=== PATIENT | male | born 1970 | race Two or more races ===

== ENCOUNTER 2024-08-28 16:32 | Emergency (ER) | payer MEDICAID, OTHER ==
[~2024-08-28] VITALS: Ht 167.6 cm; Wt 83.4 kg
[2024-08-28 17:45] LABS: Basophils # (auto) 0.1 10 ^3/uL (0-0.2); Basophils % (auto) 0.9 % (0.0-2.0); Eosinophils # (auto) 0 10 ^3/uL (0-0.8); Eosinophils % (auto) 0.7 % (0.0-7.0); Hematocrit 30.7 % (41.0-53.0); Hemoglobin 10.4 g/dL (13.5-17.5); Lymphocytes # (auto) 1.1 10 ^3/uL (0.4-5.4); Lymphocytes % (auto) 18.5 % (10.0-50.0); Mean Corpuscular Hemoglobin 30.3 pg (28.0-32.0); Mean Corpuscular Hgb Conc. 33.9 g/dL (32.0-36.0); Mean Corpuscular Volume 89.3 fL (80.0-100.0); Monocytes # (auto) 0.9 10 ^3/uL (0-1.3); Monocytes % (auto) 14.3 % (0.0-12.0); Neutrophils % (auto) 65.6 % (37.0-80.0); Nucleated Red Blood Cells % 0.1 %; Platelet Count (auto) 144 10^3/uL (140-450); Red Blood Cells 3.44 10^6/uL (4.5-5.90); White Blood Cell 6.1 10^3/uL (4.4-10.8)
[2024-08-28 17:55] LABS: Alanine Aminotransferase 58 U/L (7-40); Albumin 3.6 g/dL (3.2-4.8); Alkaline Phosphatase 168 U/L (46-116); Anion Gap 4 (5-15); Aspartate Aminotransferase 49 U/L (13-40); BUN/Creatinine Ratio 29.9 (10.0-20.0); Blood Urea Nitrogen 46 mg/dL (9-23); Carbon Dioxide 24 mmol/L (20-31); Chloride 99 mmol/L (98-107); Glucose 154 mg/dL (74-106); Lipase 55 U/L (12-53); Potassium 4.9 mmol/L (3.5-5.1); Sodium 127 mmol/L (136-145); Total Protein 7.4 g/dL (5.7-8.2)
[2024-08-28] MEDS: DICYCLOMINE HCL 10 MG CAP PO ONE (20:05)
[2024-08-28] MEDS: ONDANSETRON ODT 4 MG TAB PO ONE (20:05)
[2024-08-28 20:22] LABS: Urine Bacteria None Seen /hpf (None Seen)
[2024-08-28 20:30] LABS: Urine Blood TRACE /uL (Negative); Urine Clarity Clear (Clear); Urine Color Yellow (Yellow); Urine Protein, UAD TRACE (Negative); Urine Specific Gravity 1.016 (1.001-1.035); Urine Urobilinogen Normal (Negative); Urine WBC 1 /hpf (0 - 3); Urine pH 5.5 (5.0-9.0)
[2024-08-29 00:23] VITALS: BP 131/61; PULSE 72; RESP 16; TEMP 99.5; O2SAT 100
== END 2024-08-29 00:42 | disposition short-term general hospital (02) ==
LOC: ER 16:32
DX: N17.9 Acute kidney failure, unspecified (principal); K72.90 Hepatic failure, unspecified without coma; R74.01 Elevation of levels of liver transaminase levels; D64.9 Anemia, unspecified; E87.1 Hypo-osmolality and hyponatremia
CPT/HCPCS: 36415; 74176; 80053; 81001; 82962; 83690; 85025; 93005; 99285; J0500; Q0162